=== PATIENT | female | born 1965 | race Caucasian/White ===

== ENCOUNTER 2017-09-14 22:02 | Emergency (ER) | payer OTHER ==
--- NOTE | 2017-09-14 22:59 | EDM.PDOC ---
ED HPI GENERAL MEDICAL PROBLEM - General Chief Complaint: Upper Extremity Injury/Pain Stated Complaint: LEFT THUMB INJURY Time Seen by Provider: 09/14/17 22:54 Source of Information: Reports: Patient, RN Notes Reviewed History Limitations: Reports: No Limitations - History of Present Illness INITIAL COMMENTS - FREE TEXT/NARRATIVE: 51-year-old female presents emergency department day complaint of left thumb pain, she actually fell landed predominantly on her thumb while she is on the [place] she has difficulty moving and at this time left thumb Pain Score (Numeric/FACES): 9 - Related Data Allergies Allergy/AdvReac Type Severity Reaction Status Date / Time No Known Allergies Allergy Verified 09/14/17 22:37 Home Meds: Home Meds NK [No Known Home Meds] 09/14/17 [History] Past Medical History HEENT History: Reports: Impaired Vision ASSISTANT MANAGER History: Reports: Polycystic Ovaries, Musculoskeletal History: Reports: Arthritis, Neck Pain, Chronic Endocrine/Metabolic History: Reports: Obesity/BMI 30+ - Infectious Disease History Infectious Disease History: Reports: Chicken Pox - Past Surgical History GI Surgical History: Reports: Cholecystectomy Female Surgical History: Reports: Section, Hysterectomy, Salpingo- Oophorectomy, Other (See Below) Other Female Surgeries/Procedures: prolapsed bladder repair Musculoskeletal Surgical History: Reports: Arthroscopic Procedure Social & Family History - Tobacco Use Smoking Status *Q: Never Smoker - Recreational Drug Use Recreational Drug Use: No Review of Systems - Review of Systems Review Of Systems: See Below Musculoskeletal: Reports: Other (thumb pain left) Skin: Reports: Bruising ED EXAM, GENERAL - Physical Exam Exam: See Below Free Text/Narrative:: Examination of the left hand I do appreciate some bruising and edema over the proximal phalange he and middle phalanges of digit #1 left hand radial pulse is 2+ she has full range of motion of all digits limited range of motion of digit # 1 secondary to edema she is tender to palpation through the entire appendage Exam Limited By: No Limitations General Appearance: Alert, WD/WN, No Apparent Distress ED TRAUMA EXTREMITY PROCEDURES - Splinting Left Thumb Splint Site: thumb Pre-Procedure NV Status: Normal Post-Procedure NV Status: Normal Splint Material: Aluminum-Foam, Truman Tape Splint Design: Volar Applied & Form Fitted By: Nurse Provider Post-Splint Application NV Check: NV Status Normal, Good Position Complications: No Course - Vital Signs Last Recorded V/S: Last Vital Signs Temp 97.7 F 09/14/17 22:34 Pulse 78 09/14/17 22:34 Resp 16 09/14/17 22:34 BP 147/86 H 09/14/17 22:34 Pulse Ox 95 09/14/17 22:34 - Orders/Labs/Meds Orders: Active Orders 24 hr Category Date Time Status Fingers Thumb Lt FA [CR] Stat Exams 09/14/17 22:57 Taken Departure - Departure Time of Disposition: 23:25 Disposition: Home, Self-Care 01 Condition: Good Clinical Impression: Fracture of phalanx of thumb Qualifiers: Encounter type: initial encounter Fracture type: closed Phalanx: proximal Fracture alignment: displaced Laterality: left Qualified Code(s): S62.512A - Displaced fracture of proximal phalanx of left thumb, initial encounter for closed fracture - Discharge Information Referrals: PCP,None [Primary Care Provider] - Forms: ED Department Discharge Additional Instructions: Continue to use ibuprofen as needed for pain control, please follow-up with your orthopedic provider upon return home - My Orders Last 24 Hours: My Active Orders 09/14/17 22:57 Fingers Thumb Lt FA [CR] Stat - Assessment/Plan Last 24 Hours: My Active Orders 09/14/17 22:57 Fingers Thumb Lt FA [CR] Stat Plan: Assessment Acuity = acute Site and laterality = left 15% proximal phalanx fracture digit #1 closed Etiology = secondary to trauma Manifestations = none Location of injury = Home Lab values = x-ray describes fracture above Plan She is placed in a volar splint films were provided she will follow up with her orthopedic provider upon return home Patient was in agreement with the plan all questions were answered, they were instructed to return to the emergency department or call for worsening symptoms. This note was dictated using [employer] voice recognition software please call with any questions.
--- NOTE | 2017-09-16 08:51 | CR ---
Left thumb There is a mildly displaced fracture at the base of the proximal phalanx. There is involvement of the articular surface. Remaining bones are intact. Impression: 1. Fracture base of the proximal phalanx with mild displacement.
== END 2017-09-14 23:40 | disposition home or self-care (01) ==
LOC: JP.ED 22:02
DX: S62.512A Displaced fracture of proximal phalanx of left thumb, initial encounter for closed fracture (principal); W19.XXXA Unspecified fall, initial encounter
CPT/HCPCS: 73140-26-FA; 73140-FA; 99284